=== PATIENT | male | born 1975 | race Caucasian/White ===

== ENCOUNTER 2017-04-30 18:43 | Emergency (ER) | payer BC, OTHER ==
[2017-04-30] MEDS ORDERED: Ketorolac 60 MG/2 ML SDV IM ONE (19:07)
[2017-04-30] MEDS ORDERED: Ibuprofen 400 MG Tab PO ONE (19:20)
--- NOTE | 2017-04-30 19:44 | EDM.PDOC ---
ED HPI GENERAL MEDICAL PROBLEM - General Chief Complaint: Back Pain or Injury Stated Complaint: AMB Time Seen by Provider: 04/30/17 19:01 - History of Present Illness INITIAL COMMENTS - FREE TEXT/NARRATIVE: HISTORY AND PHYSICAL: History of present illness: Patient is 41-year-old white male history of chronic back pain presents status post fall which he slipped on the ice injuring his back he denies any head or neck pain or trauma denies any other concern is strictly mechanical fall. He states he has history of chronic back pain and was been on pain medicines in the past but is not currently on anything. Patient denies history of incontinence or retention bowel or bladder Review of systems: As per history of present illness and below otherwise all systems reviewed and negative. Past medical history: As per history of present illness and as reviewed below otherwise noncontributory. Surgical history: As per history of present illness and as reviewed below otherwise noncontributory. Social history: No reported history of drug or alcohol abuse. Family history: As per history of present illness and as reviewed below otherwise noncontributory. Physical exam: HEENT: Atraumatic, normocephalic, pupils reactive, negative for conjunctival pallor or scleral icterus, mucous membranes moist, throat clear, neck supple, nontender, trachea midline. Lungs: Clear to auscultation, breath sounds equal bilaterally, chest nontender. Heart: S1S2, regular, negative for clicks, rubs, or JVD. Abdomen: Soft, nondistended, nontender. Negative for masses or hepatosplenomegaly. Negative for costovertebral tenderness. Pelvis: Stable nontender. Genitourinary: Deferred. Rectal: Deferred. Extremities: Atraumatic, negative for cords or calf pain. Neurovascular unremarkable. Neuro: Awake, alert, oriented. Cranial nerves II through XII unremarkable. Cerebellum unremarkable. Motor and sensory unremarkable throughout. Exam nonfocal. Back: Tenderness to palpation region of the upper lumbar lower thoracic spine tenderness to vertebral body no motor or sensory deficits Diagnostics: CT lumbar spine Therapeutics: Motrin 400 mg by mouth Impression: For 1 history chronic back pain #2 observation status post fall with T11 compression fracture Definitive disposition and diagnosis as appropriate pending reevaluation and review of above. back Pain Score (Numeric/FACES): 8 - Related Data Allergies Allergy/AdvReac Type Severity Reaction Status Date / Time duloxetine HCl Allergy Other Verified 04/01/15 15:57 [From Cymbalta] Home Meds: Home Meds Phentermine HCl 04/30/17 [History] Past Medical History - Past Health History Medical/Surgical History: Denies Medical/Surgical History Musculoskeletal History: Reports: Back Pain, Chronic Social & Family History - Family History Family Medical History: Noncontributory - Tobacco Use Smoking Status *Q: Never Smoker - Alcohol Use Days Per Week of Alcohol Use: 1 Number of Drinks Per Day: 1 Total Drinks Per Week: 1 - Recreational Drug Use Recreational Drug Use: No ED ROS GENERAL - Review of Systems Review Of Systems: ROS reveals no pertinent complaints other than HPI. ED EXAM, GENERAL - Physical Exam Exam: See Below (The dictation) Course - Vital Signs Last Recorded V/S: Last Vital Signs Temp 36.7 C 04/30/17 18:54 Pulse 86 04/30/17 18:54 Resp 20 04/30/17 18:54 BP 154/97 H 04/30/17 18:54 Pulse Ox 100 04/30/17 18:54 - Orders/Labs/Meds Orders: Active Orders 24 hr Category Date Time Status Lumbar Spine wo Cont [CT] Stat Exams 04/30/17 19:07 Taken Meds: Medications Discontinued Medications Generic Name Dose Route Start Last Admin Trade Name Arsenq PRN Reason Stop Dose Admin Ibuprofen 400 mg 04/30/17 19:20 04/30/17 19:31 Motrin PO 04/30/17 19:21 400 mg ONETIME ONE Administration Ketorolac Tromethamine 60 mg 04/30/17 19:07 Toradol IM 04/30/17 19:08 ONETIME ONE Departure - Departure Time of Disposition: 20:11 Disposition: Home, Self-Care 01 Condition: Good Clinical Impression: Vertebral fracture - Discharge Information Referrals: PCP,None [Primary Care Provider] - Forms: ED Department Discharge Additional Instructions: The following information is given to patients seen in the emergency department who are being discharged to home. This information is to outline your options for follow-up care. We provide all patients seen in our emergency department with a follow-up referral. The need for follow-up, as well as the timing and circumstances, are variable depending upon the specifics of your emergency department visit. If you don't have a primary care physician on staff, we will provide you with a referral. We always advise you to contact your personal physician following an emergency department visit to inform them of the circumstance of the visit and for follow-up with them and/or the need for any referrals to a consulting specialist. The emergency department will also refer you to a specialist when appropriate. This referral assures that you have the opportunity for followup care with a specialist. All of these measure are taken in an effort to provide you with optimal care, which includes your followup. Under all circumstances we always encourage you to contact your private physician who remains a resource for coordinating your care. When calling for followup care, please make the office aware that this follow-up is from your recent emergency room visit. If for any reason you are refused follow-up, please contact the [facility] emergency department at and asked to speak to the emergency department charge nurse. Hydrocodone as prescribed follow-up spine surgery and primary medical doctor one to 2 days return as needed as discussed - My Orders Last 24 Hours: My Active Orders 04/30/17 19:07 Lumbar Spine wo Cont [CT] Stat - Assessment/Plan Last 24 Hours: My Active Orders 04/30/17 19:07 Lumbar Spine wo Cont [CT] Stat
[2017-04-30] MEDS ORDERED: Acetaminophen/HYDROcodone 325-10 MG Tab PO ONE (20:13)
[2017-04-30 22:28] VITALS: BP 122/61
--- NOTE | 2017-05-01 10:05 | CT ---
EXAM DATE: 04/30/17 PATIENT'S AGE: 41 Patient: LUPIS LOFTON Facility: [place], [place] Site . Site : [id number] Study: CT Spine Lumbar [id number]/[id number] 7:36:58 PM Ordering Physician: Adrián Talamantes Final Report: INDICATION: Fall with lower back pain TECHNIQUE: CT lumbar spine without contrast. COMPARISON: None FINDINGS: FINDINGS:Vertebrae: There is an acute superior endplate fracture of the T11 vertebrae with minimal vertebral height loss. There are chronic bilateral L5 pars defects with grade 1 anterolisthesis of L5 on S1. Discs and facet joints: Disc spaces and facets are within normal limits. Extraspinal findings: Prevertebral soft tissues and visualized retroperitoneum are unremarkable. IMPRESSION: 1. Acute superior endplate fracture of T11 vertebrae with minimal vertebral height loss. 2. Chronic bilateral L5 pars defects with grade 1 anterolisthesis of L5 on S1. Please note that all CT scans at this facility use dose modulation, iterative reconstruction, and/or weight-based dosing when appropriate to reduce radiation dose to as low as reasonably achievable. Dictated by Fransisca Brandt MD @ Apr 30 2017 7:51PM (Electronic Signature) Report Signed by Proxy. JANELLE
== END 2017-04-30 20:30 | disposition home or self-care (01) ==
LOC: MW.ED 18:43
DX: S22.089A Unspecified fracture of T11-T12 vertebra, initial encounter for closed fracture (principal); Z88.8 Allergy status to other drugs, medicaments and biological substances; W00.9XXA Unspecified fall due to ice and snow, initial encounter
CPT/HCPCS: 72131; 96372; 99284; A9270; J1885; 99282

== ENCOUNTER 2019-10-09 06:59 | Day surgery (SDC) | payer BC ==
[~2019-10-09 06:59] MED LIST: Lactated Ringers 1,000 ML IV SCH
[2019-10-09] MEDS ORDERED: Naloxone 0.4 MG/ML Syringe IVPUSH PRN (07:24)
[2019-10-09] MEDS ORDERED: fentaNYL 100 MCG/2 ML SDV IVPUSH PRN (07:24)
[2019-10-09] MEDS ORDERED: EPINEPHrine 1:10,000 1 MG/10 ML Syringe IVPUSH PRN (07:24)
[2019-10-09] MEDS ORDERED: Atropine 0.1 MG/ML 10 ML Syringe IVPUSH PRN ×2 (07:24)
[2019-10-09] MEDS ORDERED: 50% Dextrose in Water 50 ML Syringe IVPUSH PRN (07:24)
[2019-10-09] MEDS ORDERED: Bupivacaine 0.5% 10 ML SDV ONE (07:24)
[2019-10-09] MEDS ORDERED: Albuterol 0.083% 2.5 MG/3 ML Neb Soln NEB PRN (07:24)
[2019-10-09] MEDS ORDERED: Lidocaine 1% 20 ML MDV ONE (07:25)
[2019-10-09] MEDS ORDERED: fentaNYL 100 MCG/2 ML SDV ONE ×2 (07:28→08:11)
[2019-10-09] MEDS ORDERED: Propofol 200 MG/20 ML SDV ONE ×2 (07:28→07:29)
[2019-10-09] MEDS ORDERED: Midazolam 1 MG/ML 2 ML SDV ONE (07:28)
[2019-10-09] MEDS ORDERED: Lidocaine 2% 5 ML SDV ONE (07:29)
--- NOTE | 2019-10-09 07:35 | PCM.PREANE ---
Preanesthetic Assessment - Anesthesia/Transfusion/Family Hx Anesthesia History: Prior Anesthesia Without Reaction Family History of Anesthesia Reaction: No Transfusion History: No Prior Transfusion(s) - Review of Systems General: No Symptoms Pulmonary: No Symptoms Cardiovascular: No Symptoms Gastrointestinal: No Symptoms Neurological: No Symptoms Other: Reports: None - Physical Assessment NPO Status Date: 10/08/19 Height: 6 ft 2 in Weight: 120.202 kg ASA Class: 2 Mental Status: Alert & Oriented x3 Airway Class: Mallampati = 2 Dentition: Reports: Normal Dentition ROM/Head Extension: Full Lungs: Clear to Auscultation, Normal Respiratory Effort Cardiovascular: Regular Rate, Regular Rhythm - Allergies Allergies/Adverse Reactions: Allergies Allergy/AdvReac Type Severity Reaction Status Date / Time duloxetine HCl Allergy Anaphylactic Verified 10/05/19 11:24 [From Cymbalta] Shock - Blood Blood Available: No - Anesthesia Plan Pre-Op Medication Ordered: None - Acknowledgements Anesthesia Type Planned: General Anesthesia, MAC Pt an Appropriate Candidate for the Planned Anesthesia: Yes Alternatives and Risks of Anesthesia Discussed w Pt/Guardian: Yes Pt/Guardian Understands and Agrees with Anesthesia Plan: Yes Additional Comments: PMH: chr LBP, PLAN: ga , airway management depending on surgical positioning PreAnesthesia Questionnaire - Past Health History Medical/Surgical History: Denies Medical/Surgical History Cardiovascular History: Reports: Arrhythmia Other Cardiovascular History: had palpitations and was on medication in his 20's- not for several years Musculoskeletal History: Reports: Fracture Other Musculoskeletal History: hx of fx thorasic vertebrate Neurological History: Reports: Concussion Endocrine/Metabolic History: Reports: Obesity/BMI 30+ - Past Surgical History Head Surgeries/Procedures: Reports: None HEENT Surgical History: Reports: Oral Surgery Other HEENT Surgeries/Procedures: excision of wisdom teeth - SUBSTANCE USE Smoking Status *Q: Former Smoker Tobacco Use Within Last Twelve Months: No Recreational Drug Use History: No - HOME MEDS Home Medications: Home Meds . [No Known Home Meds] 10/05/19 [History] - CURRENT (IN HOUSE) MEDS Current Meds: Current Medications Albuterol (Proventil Neb Soln) 2.5 mg NEB ONETIME PRN PRN Reason: Wheezing Atropine Sulfate (Atropine 0.1 Mg/Ml) 0.5 mg IVPUSH ASDIRECTED PRN PRN Reason: Hypo-perfusion Atropine Sulfate (Atropine 0.1 Mg/Ml) 1 mg IVPUSH ASDIRECTED PRN PRN Reason: Hypo-Perfusion Dextrose/Water (Dextrose 50% In Water) 50 ml IVPUSH ASDIRECTED PRN PRN Reason: Hypoglycemia Epinephrine HCl (Epinephrine 1:10,000) 1 mg IVPUSH ASDIRECTED PRN PRN Reason: ACLS Guidelines Fentanyl (Sublimaze) 50 mcg IVPUSH Q5M PRN PRN Reason: Pain Lactated Ringer's (Ringers, Lactated) 1,000 mls @ 125 mls/hr IV ASDIRECTED SHAWN Naloxone HCl (Narcan) 0.1 mg IVPUSH ASDIRECTED PRN PRN Reason: Respiratory Depression Discontinued Medications Bupivacaine HCl (Sensorcaine-Mpf 0.5%) Confirm Administered Dose 10 ml .ROUTE .STK-MED ONE Stop: 10/09/19 07:25 Fentanyl (Sublimaze) Confirm Administered Dose 100 mcg .ROUTE .STK-MED ONE Stop: 10/09/19 07:29 Lidocaine (Xylocaine-Mpf 2%) Confirm Administered Dose 5 ml .ROUTE .STK-MED ONE Stop: 10/09/19 07:30 Lidocaine HCl (Xylocaine 1%) Confirm Administered Dose 20 ml .ROUTE .STK-MED ONE Stop: 10/09/19 07:26 Midazolam HCl (Versed 1 Mg/Ml) Confirm Administered Dose 2 mg .ROUTE .STK-MED ONE Stop: 10/09/19 07:29 Propofol (Diprivan 20 Ml) Confirm Administered Dose 200 mg .ROUTE .STK-MED ONE Stop: 10/09/19 07:29 Propofol (Diprivan 20 Ml) Confirm Administered Dose 200 mg .ROUTE .STK-MED ONE Stop: 10/09/19 07:30
[2019-10-09] MEDS ORDERED: Dexamethasone 4 MG/ML 5 ML MDV ONE (08:19)
[2019-10-09] MEDS ORDERED: Ondansetron 4 MG/2 ML SDV ONE (08:19)
[2019-10-09] MEDS ORDERED: Morphine 10 MG/ML Syringe IVPUSH PRN (08:54)
[2019-10-09] MEDS ORDERED: Acetaminophen/HYDROcodone 325-5 MG Tab PO PRN (08:54)
--- NOTE | 2019-10-09 08:55 | PCM.OPNOTE ---
- General Post-Op/Procedure Note Date of Surgery/Procedure: 10/09/19 Operative Procedure(s): Excision 8 x 10 cm left upper back mass Pre Op Diagnosis: Enlarging left upper back mass Post-Op Diagnosis: Same Anesthesia Technique: General LMA (ASA II) Primary Surgeon: Josué Frias Fluid Replacement, Intraop: 1,000 EBL in mLs: 5 Condition: Good Free Text/Narrative:: DICTATION [id number] CPT CODE 70351
[2019-10-09] MEDS ORDERED: Lactated Ringers 1,000 ML IV SCH (09:00)
--- NOTE | 2019-10-09 09:05 | PCM.POSTAN ---
POST ANESTHESIA ASSESSMENT - MENTAL STATUS Mental Status: Alert, Oriented - VITAL SIGNS Vital Signs: Last Vital Signs Temp 36.4 C 10/09/19 08:47 Pulse 79 10/09/19 09:02 Resp 15 10/09/19 09:02 BP 117/67 10/09/19 09:02 Pulse Ox 96 10/09/19 09:02 - RESPIRATORY Respiratory Status: Respiratory Rate WNL, Airway Patent, O2 Saturation Stable - CARDIOVASCULAR CV Status: Pulse Rate WNL, Blood Pressure Stable - GASTROINTESTINAL GI Status: No Symptoms - PAIN Pain Score: 1 - POST OP HYDRATION Hydration Status: Adequate & Stable
--- NOTE | 2019-10-09 09:23 | PCM48HPAN ---
Post Anesthesia Note - EVALUATION WITHIN 48HRS OF ANESTHETIC Vital Signs in Normal Range: Yes Patient Participated in Evaluation: Yes Respiratory Function Stable: Yes Airway Patent: Yes Cardiovascular Function Stable: Yes Hydration Status Stable: Yes Pain Control Satisfactory: Yes Nausea and Vomiting Control Satisfactory: Yes Mental Status Recovered: Yes Vital Signs: Last Vital Signs Temp 98.6 F 10/09/19 09:10 Pulse 82 10/09/19 09:10 Resp 14 10/09/19 09:10 BP 112/72 10/09/19 09:10 Pulse Ox 97 10/09/19 09:10
[2019-10-09 09:58] VITALS: BP 124/70; PULSE 88
--- NOTE | 2019-10-09 13:44 | OR ---
SURGEON: Josué Frias M.D. DATE OF PROCEDURE: 10/09/2019 OPERATION PERFORMED: Excision of 8 cm x 10 cm left upper back mass. PRIMARY SURGEON: Josué Frias MD ANESTHESIA: General LMA. ASA CLASSIFICATION: II. PREOPERATIVE DIAGNOSIS: Enlarging symptomatic back mass. POSTOPERATIVE DIAGNOSIS: Enlarging symptomatic back mass. DESCRIPTION OF PROCEDURE: The patient was taken to the operating room and placed on the operating table on the lynch bag in a supine position. Sequential compression boots were placed. Following satisfactory attainment of general anesthesia with placement of an LMA, the patient was positioned in the right lateral decubitus position. A right axillary roll was placed. The patient was secured on the lynch bag and secured to the table with double straps. The lynch bag was deflated. The surgical site was prepped with DuraPrep solution and sterile drapes were applied. The surgical site and skin incision had been marked prior to the patient entering the operating room. The incision was now infiltrated with 10 mL of 0.5% Marcaine solution. Skin incision was made and deepened down to the subcutaneous tissue. Hemostasis was obtained with the use of electrocautery. The dissection was carried down to the encapsulated soft tissue mass, which clinically is a lipoma. Using electrocautery, this was dissected away from its bed down to the superficial fascia. Bleeding sites were electrocoagulated. The wound was inspected for hemostasis and no other bleeding was noted. The 10 cm incision was then closed in three layers approximating the deep subcutaneous tissue with 3-0 Vicryl. Superficial investing fascia was closed with 3-0 Vicryl and the skin edges were reapproximated with subcuticular 4-0 Monocryl. The incision was then steri-stripped and dressed with a sterile Tegaderm pad. Sponge, needle, and instrument counts were all correct. The patient was placed on the transfer cart and following emergence from anesthesia and extubation was taken to recovery room in stable condition. GLENDA / MAME /[id number]
== END 2019-10-09 10:20 | disposition home or self-care (01) ==
LOC: MW.SDS 06:59
PROVIDERS: ATTEND Surgery
DX: D17.1 Benign lipomatous neoplasm of skin and subcutaneous tissue of trunk (principal); G89.4 Chronic pain syndrome; M54.5 Low back pain; E66.9 Obesity, unspecified; Z79.891 Long term (current) use of opiate analgesic; Z88.8 Allergy status to other drugs, medicaments and biological substances; Z87.891 Personal history of nicotine dependence; Z68.34 Body mass index [BMI] 34.0-34.9, adult; Z98.818 Other dental procedure status; Z72.89 Other problems related to lifestyle
CPT/HCPCS: 21931; J1100; J2001; J2250; J2405; J2704; J3010; J3490; J7120